=== PATIENT | female | born 1980 | race Caucasian/White ===

== ENCOUNTER 2019-07-04 23:02 | Emergency (ER) | payer MEDICAID ==
[~2019-07-04] VITALS: Ht 188 cm; Wt 111.3 kg
--- NOTE | 2019-07-05 01:07 | NUR ---
ASSESSMENT MADE. PA AT BEDSIDE. PATIENT STATES THAT SHE FELL 2 WEEKS AGO AND HIT BACK OF HEAD. PAIN COMES AND GOES. MORE CONSTANT TODAY. + NECK PAIN, BLURRED VISION AND N/V. SENSITIVE TO LIGHT.
[2019-07-05] MEDS ORDERED: ONDANSETRON ODT 4 MG ONE (01:14)
--- NOTE | 2019-07-05 01:16 | NUR ---
PATIENT MEDICATED FOR NAUSEA/VOMITING.
[2019-07-05] MEDS ORDERED: ACETAMINOPHEN 500 MG TABLET ONE (01:19)
[2019-07-05] MEDS ORDERED: ONDANSETRON ODT 4 MG PO ONE (01:30)
[2019-07-05] MEDS ORDERED: ACETAMINOPHEN 500 MG TABLET PO ONE (01:30)
[2019-07-05] MEDS ORDERED: KETOROLAC 60 MG/2 ML ONE (03:25)
[2019-07-05 03:30] VITALS: BP 141/96
[2019-07-05] MEDS ORDERED: KETOROLAC 30 MG/1 ML IM ONE (03:30)
--- NOTE | 2019-07-05 03:36 | NUR ---
Abena RN: Medicated patient per may. Discharge instructions given. All questions and concerns addressed. Patient ambulatory with a steady gait. Belongings with patient.
== END 2019-07-05 03:49 | disposition home or self-care (01) ==
LOC: ED 07-05 01:12
DX: S09.90XA Unspecified injury of head, initial encounter (principal); F10.10 Alcohol abuse, uncomplicated; F15.10 Other stimulant abuse, uncomplicated; F17.210 Nicotine dependence, cigarettes, uncomplicated; R42 Dizziness and giddiness; R11.2 Nausea with vomiting, unspecified; Z72.9 Problem related to lifestyle, unspecified; W19.XXXA Unspecified fall, initial encounter; Y93.89 Activity, other specified; Y92.89 Other specified places as the place of occurrence of the external cause; Y99.8 Other external cause status; Y90.0 Blood alcohol level of less than 20 mg/100 ml
CPT/HCPCS: 70450; 72125; 96372; 99285; J1885; Q0162